=== PATIENT | female | born 1965 | race Caucasian/White ===

== ENCOUNTER 2016-08-14 03:16 | Emergency (ER) | payer OTHER, SELFPAY ==
[~2016-08-14] VITALS: Ht 152.4 cm; Wt 72.2 kg
[2016-08-14 03:17] VITALS: BP 169/90
== END 2016-08-14 04:23 | disposition home or self-care (01) ==
LOC: ED 04:17
DX: F41.1 Generalized anxiety disorder (principal); F51.01 Primary insomnia; G47.9 Sleep disorder, unspecified; I10 Essential (primary) hypertension; E03.9 Hypothyroidism, unspecified
CPT/HCPCS: 93005; 99284